=== PATIENT | male | born 1935 | race Caucasian/White ===

== ENCOUNTER 2020-12-14 07:24 | Outpatient (REF) | payer SELFPAY ==
[2020-12-14 08:18] LABS: Abs Immature Grans 0.01 10^3/uL (0.0-0.06); Absolute Basophil Count 0.06 10^3/uL (0.0-0.2); Absolute Eosinophil Count 0.19 10^3/uL (0.0-0.7); Absolute Lymphocyte Count 1.99 10^3/uL (1.2-3.4); Absolute Monocyte Count 0.34 10^3/uL (0.1-0.8); Absolute Neutrophil Count 2.53 10^3/uL (1.2-6.7); Basophils % 1.2; Eosinophils % 3.7; HCT 47.3 % (40.0-50.0); HGB 15.8 g/dL (13.5-17.5); Immature Grans % 0.2; Lymphocytes % 38.9; MCH 32.2 pg (27.0-33.0); MCHC 33.4 % (32.0-36.0); MCV 96.3 fL (80-95); MPV 10.8 fL (8.0-11.0); Monocytes % 6.6; Neutrophils % 49.4; Nucleated RBC 0 %; Platelet Count 218 10^3/uL (130-400); RBC 4.91 10^6/uL (4.36-5.78); RDW-SD 49.4 fL; WBC 5.12 10^3/uL (4.4-10.8)
[2020-12-14 08:28] LABS: ALT 29 U/L (16-63); AST 17 U/L (15-37); Albumin 3.4 g/dL (3.4-5.0); Alkaline Phosphatase 85 U/L (46-116); Anion Gap 7.1 mmol/L (3-11); BUN 15 mg/dL (7-18); Bilirubin, Total 0.3 mg/dL (0.2-1.0); CO2 29.9 mmol/L (21.0-32.0); CREATININE 1.2 mg/dL (0.70-1.30); Calcium 9.1 mg/dL (8.5-10.1); Chloride 105 mmol/L (98-107); Estimated GFR 57.68 (mL/min/1.73m2); Glucose 117 mg/dL (74-106); Potassium 3.8 mmol/L (3.5-5.1); Sodium 142 mmol/L (136-145); Total Protein 7.5 g/dL (6.4-8.2)
== END 2020-12-14 07:25 | disposition home or self-care (01) ==
LOC: LBN 07:24
PROVIDERS: PCP Occupational Therapist; Visit Provider Family Medicine
DX: E87.0 Hyperosmolality and hypernatremia (principal); A41.89 Other specified sepsis; N39.0 Urinary tract infection, site not specified
CPT/HCPCS: 80053; 85025